=== PATIENT | male | born 1940 | race Caucasian/White ===

== ENCOUNTER 2017-05-09 08:47 | Outpatient (CLI) | payer MEDICARE, BC ==
[2017-05-09 10:24] LABS: #Eosinphils 0.1 thou/uL (0.0-0.7); #Monocytes 0.4 thou/uL (0.11-0.59); #Neutrophils 3.7 thou/uL (1.40-6.50); %Basophils 0.9 % (0.0-1.0); %Eosinophils 1.5 % (0.0-10.0); %Lymphocytes 19.4 % (21.0-51.0); %Neutrophils 70.1 % (42.0-75.0); Mean Corpuscular HGB CONC 32.1 g/dL (32.0-36.0); Mean Corpuscular Hemoglobin 32.5 pg (27.0-31.0); Mean Platelet Volume 9.9 fL (7.4-10.4); Platelet Count 146 thou/uL (130-400); RBC Distribution Width 12.6 % (11.5-14.5); Red Blood Cell (RBC) Count 3.99 mill/uL (4.70-6.10); White Blood Cell (WBC) Count 5.2 thou/uL (4.8-10.8)
[2017-05-09 10:32] LABS: Bilirubin Negative (Negative); Blood, Urine Negative (Negative); Clarity CLEAR (Clear); Glucose, Urine (Dipstick) Negative (Negative); Leukocyte Negative (Negative); Nitrite Negative (Negative); Protein, Urine (Dipstick) Negative (Neg-Trace); Specific Gravity, Urine 1.024 (1.002-1.036); Urobilinogen 0.2 mg/dL (0.2-1.0); pH, Urine 5.5 (5.0-9.0)
[2017-05-09 10:33] LABS: INR-International Normal Ratio 1.1; Prothrombin Time 14.2 SEC (12.0-14.7)
[2017-05-09 10:37] LABS: Bacteria/HPF None Seen HPF (None Seen); Hyaline Casts/LPF 0-3 HYALINE CAST LPF (0-3 Hyaline); RBC/HPF 0-3 HPF (0-3); Squamous Epithelial None Seen HPF (0-3); WBC/HPF None Seen HPF (0-3)
[2017-05-09 10:44] LABS: Anion Gap 10 mmol/L (10-20); BUN (Urea Nitrogen) 26 mg/dL (8.4-25.7); Calc. Creatinine Clearance 0 mL/min (70-130); Calcium 9.3 mg/dL (7.8-10.44); Carbon Dioxide 30 mmol/L (23-31); Chloride 106 mmol/L (98-107); Estimated GFR-MDRD 64; Glucose 69 mg/dL (83-110); Potassium 4.3 mmol/L (3.5-5.1); Sodium 142 mmol/L (136-145)
== END 2017-05-09 08:48 | disposition home or self-care (01) ==
LOC: LABBT 08:47
PROVIDERS: ATTEND Orthopaedic Surgery
DX: Z01.818 Encounter for other preprocedural examination (principal); M17.11 Unilateral primary osteoarthritis, right knee
CPT/HCPCS: 80048; 81001; 85025; 85610; 87081; 93005; 93010

== ENCOUNTER 2017-05-18 14:30 | Outpatient (CLI) | payer MEDICARE, BC | END 2017-05-18 14:31 | disposition home or self-care (01) | LOC: LABBT 14:30 | PROVIDERS: ATTEND Orthopaedic Surgery | DX: Z01.818 Encounter for other preprocedural examination (principal); M17.11 Unilateral primary osteoarthritis, right knee | CPT/HCPCS: 86850; 86900; 86901 ==

== ENCOUNTER 2017-05-22 05:33 | Day surgery (SDC) | payer MEDICARE, BC ==
[2017-05-09 09:05] VITALS: BMI 21.1
[2017-05-22] MEDS ORDERED: Midazolam HCl 2 mg/2 ml Vial ONE (06:23)
[2017-05-22] MEDS ORDERED: Lidocaine 1% (PF) 30 ML VIAL ONE ×2 (06:23→07:31)
[2017-05-22] MEDS ORDERED: Fentanyl 100 MCG/2 ML VIAL ONE ×2 (06:23→07:54)
[2017-05-22] MEDS ORDERED: Bupivacaine PF 0.5% 30 ML VIAL ONE (06:25)
[2017-05-22] MEDS ORDERED: Ropivacaine 0.2% HCl/PF 20 ML ONE (06:27)
[2017-05-22] MEDS ORDERED: Clindamycin/D5W 600 mg/50 ml Premix Bag ONE (06:28)
[2017-05-22] MEDS ORDERED: Ondansetron HCl/PF 4 MG/2 ML Vial IVP PRN ×3 (07:09→09:10)
[2017-05-22] MEDS ORDERED: Promethazine HCl 25 MG/ML VIAL IM PRN ×3 (07:09→09:10)
[2017-05-22] MEDS ORDERED: Ketorolac Tromethamine 30 MG/ML VIAL IVP PRN (07:09)
[2017-05-22] MEDS ORDERED: Zolpidem Tartrate 5 MG TAB PO PRN ×2 (07:09→09:04)
[2017-05-22] MEDS ORDERED: HYDROcodone/Acetaminophen 10/325 mg Tablet PO PRN (07:09)
[2017-05-22] MEDS ORDERED: Ropivacaine 0.2% 550 ML 550 ML NERVE BLCK SCH (07:09)
[2017-05-22] MEDS ORDERED: traMADol HCl 50 MG TAB PO PRN ×2 (07:09)
[2017-05-22] MEDS ORDERED: methylPREDNISolone Acetate 40 mg/ml Vial ONE (07:31)
[2017-05-22] MEDS ORDERED: hydrALAZINE 20 MG/ML VIAL ONE (07:58)
[2017-05-22] MEDS ORDERED: diphenhydrAMINE 25 MG CAP PO PRN (09:04)
[2017-05-22] MEDS ORDERED: Acetaminophen 325 MG TAB PO PRN (09:04)
[2017-05-22] MEDS ORDERED: Promethazine HCl 25 MG/ML VIAL SLOW IVP PRN (09:10)
[2017-05-22] MEDS ORDERED: Tranexamic Acid 1,000 MG in Sodium Chloride 0.9% 100 ML IVPB SCH (09:15)
--- NOTE | 2017-05-22 10:17 | OP ---
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 POSTOPERATIVE DIAGNOSIS: Bilateral knee osteoarthrosis with the right side being worse than the left . PROCEDURES PERFORMED: 1. Right total knee replacement using [employer] pinless navigation. 2. Left knee corticosteroid injection. SURGEON: Damon Craven M.D. CYLINDER BATCHER: Kaiden Alston PA-C ANESTHESIA: He did have general anesthetic as well as preoperative blocks. DISPOSITION: He did go to the recovery room in stable condition. COMPLICATIONS: There were no complications. IMPLANTS: To the right knee including a [employer] Triathlon total knee system, the femur was size 5 cr uciate retaining, tibial baseplate size 5 universal baseplate. We used a 5 x 9 mm CS X3 tibial beari ng and an asymmetric 29 x 9 X3 patella. INDICATIONS: A 77-year-old male with bilateral knee arthritis, and at this time, he wished to have h is right knee replaced and the left knee injected. After all appropriate consent forms were explaine d and signed, he was taken back to the operating room and at this time was given general anesthetic. Once the level of anesthesia was appropriate, the left leg had the knee washed with some alcohol ove r the area of injection and we then sterilely injected 80 mg of Depo-Medrol with local into the left knee joint. A Band-Aid was applied. PROCEDURE IN DETAIL: After all appropriate consent forms were explained and signed, the patient was taken back to the Operating Room and at this time was given general anesthetic. Once the level of an esthesia was appropriate, a well-padded tourniquet was placed on the right leg and the leg was then p repped and draped in standard surgical fashion. The limb was exsanguinated and tourniquet taken up t o 300 mmHg. Midline incision was made with a 10 blade down through the skin and subcutaneous tissue. Bovie electrocautery was used to coagulate any brisk venous bleeding. A new blade was used to make a medial parapatellar arthrotomy. Small subperiosteal release was performed medially and excess fat pad was removed. The knee was flexed up to gain access to the femur. The femur was navigated and d istal femoral resection was made. Epicondylar access was used to align our sizing jig and this was p inned in place. We sized our femur to be a size 5 cruciate retaining, 4:1 cutting block was applied and pinned. Anterior and posterior chamfer cuts were then made. We navigated out our proximal tibia and made our proximal tibial resection. Spreaders were used to remove any posterior osteophytes off the back of the femur as well as remaining meniscal tissue. A long alignment alexx was then used to a chieve correct rotation of our tibial baseplate and a size 5 universal baseplate was chosen. This wa s pinned in place. We trialed the polyethylene and a 5 x 9 mm CS X3 tibial bearing polyethylene gave us full extension and good stability throughout range of motion. Two towel clips and a saw were use d to cut our patella. Three lug nuts were drilled and an asymmetric 29 x 9 X3 patella was trialed wh ich sat nicely in the trochlear groove. We then drilled our femur and punched our tibia. All compon ents were removed. The knee was thoroughly irrigated and dried. Cement was mixed into the cement gu n on the back table. Components were then placed. The knee was held out in full extension until the cement had dried. All excess bone cement was removed. Multiple #2 Vicryl stitches as well as a Colt ll was used to close our extensor mechanism. 0 Quill followed by a running Monoderm was then used to close the skin. Surgicel glue was then used on the skin. Once this had dried, soft tissue dressing was applied to the limb, tourniquet was let down, and the toes pinked up nicely. The patient was th en awakened and taken to the Recovery Room in stable condition. All counts were correct at the end o f the case. The patient did receive preoperative IV antibiotics. The patient was injected with Expa rel for postoperative pain relief.
[2017-05-22] MEDS ORDERED: Prevnar 13-Val Conj/PF 0.5 ML SYRINGE IM ONE (11:45)
[2017-05-22] MEDS: Clindamycin/D5W 900 MG in Premix Bag 1 BAG IVPB SCH ×2 (12:39→18:10)
[2017-05-22] MEDS: Sodium Chloride 0.9% 1,000 ML IV SCH ×2 (12:39→20:15)
[2017-05-22] MEDS ORDERED: Ropivacaine 0.5% HCl/PF (150 MG/30 ML VIAL) ONE (16:10)
[2017-05-22] MEDS ORDERED: Bupivacaine/Epinephrine 0.25% 30 ML VIAL ONE (16:10)
[2017-05-22] MEDS ORDERED: ePHEDrine/0.9% NaCl/PF SYRINGE 50 mg/10 ml ONE (16:26)
[2017-05-22] MEDS ORDERED: PROPOFOL 200 MG/20 ML VIAL ONE (16:26)
[2017-05-22] MEDS ORDERED: Ondansetron HCl/PF 4 MG/2 ML Vial ONE (16:26)
[2017-05-22] MEDS ORDERED: PHENYLEPHRINE-NS 100 MCG/ML 10 ML SYRINGE ONE (16:26)
[2017-05-22] MEDS ORDERED: Dexamethasone 20 MG/5 ML VIAL ONE (16:26)
[2017-05-22] MEDS ORDERED: Vancomycin HCl 1 GM in Premix Bag 1 BAG IVPB SCH (18:00)
[2017-05-22] MEDS ORDERED: hydrALAZINE 20 MG/ML VIAL SLOW IVP PRN (18:04)
--- NOTE | 2017-05-22 21:10 | CON ---
DATE OF CONSULTATION: 05/22/2017 PRIMARY CARE PROVIDER: None. CHIEF COMPLAINT: Management of medical comorbidities. HISTORY OF PRESENT ILLNESS: Mr. Verdin is a pleasant 77-year-old gentleman who was seen at [facility] on 05/22/2017 following right total knee replacement. He was seen for gustavo suarez of medical comorbidities. He denies any chest pain or shortness of breath. He denies any fevers or chills. He denies any naus ea, vomiting, diarrhea or abdominal pain. He reports that the pain at the surgical site is controlle d with pain medications. REVIEW OF SYSTEMS: The following complete review of systems was negative, unless otherwise mentioned in the HPI or below: Constitutional: Weight loss or gain, ability to conduct usual activities. Sk in: Rash, itching. Eyes: Double vision, pain. ENT/Mouth: Nose bleeding, neck stiffness, pain, tenderness. Cardiovascular: Palpitations, dyspnea on exertion, orthopnea. Respiratory: Shortness of breath, wheezing, cough, hemoptysis, fever or nig ht sweats. Gastrointestinal: Poor appetite, abdominal pain, heartburn, nausea, vomiting, constipati on, or diarrhea. Genitourinary: Urgency, frequency, dysuria, nocturia. Musculoskeletal: Pain, swe lling. Neurologic/Psychiatric: Anxiety, depression. Allergy/Immunologic: Skin rash, bleeding tend ency. PAST MEDICAL HISTORY: Significant for coronary artery disease, gastroesophageal reflux disease, dysl ipidemia, eye trauma. PAST SURGICAL HISTORY: Right total knee arthroplasty today, PCI with stents in the past. SOCIAL HISTORY: The patient denies tobacco use or recreational drug use. Rare alcohol use. FAMILY HISTORY: No family history of premature coronary artery disease. CODE STATUS: I discussed his code status. He is FULL CODE. ALLERGIES: CLONIDINE, PENICILLIN, and TOPIRAMATE. HOME MEDICATIONS: Vitamin C 500 mg daily, aspirin 162 mg daily, buprenorphine 2 mg sublingually 2 ti mes a day, calcium carbonate 500 mg daily, fexofenadine 180 mg daily, fish oil 500 mg daily, glucosam ine 1500 mg daily, probiotic 1 capsule daily, magnesium 250 mg daily, Protonix 40 mg daily, polyethyl sherwin glycol 17 grams daily, pravastatin 40 mg at bedtime, prednisone 4 mg daily, Lyrica 150 mg daily, timolol eyedrops. PHYSICAL EXAMINATION: GENERAL: On examination, Mr. Verdin is awake and alert, not in acute distress. VITAL SIGNS: Blood pressure is 145/86, pulse is 67, he is breathing at rate of 18, and saturating 95 % on room air. He is afebrile. EYES: No scleral icterus. No conjunctival pallor. ENT: Moist mucosal membranes, no oropharyngeal erythema or exudates. NECK: Supple, nontender, normal range of movement. Trachea is midline. RESPIRATORY: Accessory muscles of breathing are not active. Chest wall movements are symmetric bila terally. Lungs are clear to auscultation without wheeze, rhonchi or crepitations. CARDIOVASCULAR: S1 and S2 are heard, regular. Peripheral pulses palpable. No carotid bruit, no per icardial rub. ABDOMEN: Soft, nontender, bowel sounds heard, no hepatomegaly, no splenomegaly. NEUROLOGIC: Cranial nerves II-XII intact. MUSCULOSKELETAL: Status post right knee surgery. SKIN: No rashes or subcutaneous nodules. LYMPHATIC: No cervical lymphadenopathy. PSYCHIATRIC: Normal mood, normal affect. The patient is oriented to person, place, and time. LABORATORY DATA: Mr. Verdin's labs and investigations were reviewed. On 05/09/2017, he had white c ount of 5200, hemoglobin 13, platelet count 146,000, normal electrolytes, elevated blood urea nitroge n of 26 and normal creatinine. ASSESSMENT AND PLAN: Mr. Verdin is a pleasant 77-year-old gentleman who was seen at [facility] for management of medical comorbidities. His problem list includes: 1. Coronary artery disease. The patient denies any chest pain. Coronary artery disease appears to be stable. 2. Dyslipidemia: Continue statin. 3. Gastroesophageal reflux disease. Continue proton-pump inhibitor. 4. Add p.r.n. IV hydralazine for blood pressure spikes. LEVEL OF RISK: Moderate. LEVEL OF COMPLEXITY: Moderate.
[2017-05-22] MEDS: Senokot S 8.6-50 MG TAB PO SCH (21:26)
[2017-05-22] MEDS: Atorvastatin Calcium 10 MG TAB PO SCH (21:27)
[2017-05-22] MEDS: Ferrous Gluconate 324 MG TAB PO SCH (21:27)
[2017-05-22] MEDS: Aspirin 81 mg Enteric Coated Tablet PO SCH (21:27)
[2017-05-22] MEDS: HYDROcodone/Acetaminophen 10/325 mg Tablet PO PRN (21:30)
[2017-05-23] MEDS: HYDROcodone/Acetaminophen 10/325 mg Tablet PO PRN ×3 (02:35→23:20)
[2017-05-23 04:02] LABS: Hemoglobin 11.9 g/dL (14.0-18.0); Mean Corpuscular HGB CONC 33.5 g/dL (32.0-36.0); Mean Corpuscular Hemoglobin 32.9 pg (27.0-31.0); Mean Corpuscular Volume 98.4 fl (80.0-94.0); Mean Platelet Volume 9.5 fL (7.4-10.4); Platelet Count 124 thou/uL (130-400); RBC Distribution Width 12.9 % (11.5-14.5); Red Blood Cell (RBC) Count 3.62 mill/uL (4.70-6.10); White Blood Cell (WBC) Count 15.5 thou/uL (4.8-10.8)
[2017-05-23] MEDS: Sodium Chloride 0.9% 1,000 ML IV SCH ×2 (04:37→16:00)
[2017-05-23] MEDS: Polyethylene Glycol 3350 17 GM Packet PO SCH (07:57)
[2017-05-23] MEDS: Calcium Carbonate 500 MG TAB PO SCH (07:58)
[2017-05-23] MEDS: Senokot S 8.6-50 MG TAB PO SCH ×2 (07:58→20:49)
[2017-05-23] MEDS: Multivitamin W/ Minerals 1 TAB PO SCH (07:59)
[2017-05-23] MEDS: Ferrous Gluconate 324 MG TAB PO SCH ×2 (07:59→20:49)
[2017-05-23] MEDS: CeleCOXIB 100 MG CAP PO SCH (07:59)
[2017-05-23] MEDS: Loratadine 10 MG TAB PO SCH (07:59)
[2017-05-23] MEDS: Fish Oil 1,000 MG CAP PO SCH (08:00)
[2017-05-23] MEDS: Ascorbic Acid 500 mg Chewable Tablet PO SCH (08:00)
[2017-05-23] MEDS: Aspirin 81 mg Enteric Coated Tablet PO SCH ×2 (08:00→20:49)
[2017-05-23] MEDS: Pregabalin 75 MG CAP PO SCH (08:09)
[2017-05-23] MEDS ORDERED: Aspirin 81 mg Enteric Coated Tablet PO SCH (09:00)
[2017-05-23] MEDS: predniSONE 1 MG TAB PO SCH (11:27)
[2017-05-23] MEDS: Timolol 0.5% Ophth Soln 5 ml Bottle L EYE SCH (11:28)
--- NOTE | 2017-05-23 15:25 | PDOC.PN ---
- Subjective Encounter Start Date: 05/23/17 Encounter Start Time: 10:20 Pt seen for followup re: CAD. denies chest pain, shortness of breath, fevers or chills. - Objective MAR Reviewed: Yes Vital Signs & Weight: Vital Signs (12 hours) Temp Pulse Resp BP Pulse Ox 05/23/17 11:25 97.9 F 61 16 104/58 L 95 05/23/17 08:00 98.4 F 66 16 05/23/17 07:33 98.4 F 66 16 118/63 95 05/23/17 04:00 98.2 F 65 16 113/62 93 L Weight Admit Weight 156 lb Weight 156 lb I&O: 05/22/17 05/23/17 05/24/17 06:59 06:59 06:59 Intake Total 2400 Output Total 2500 Balance -100 Result Diagrams: 05/23/17 03:30 Phys Exam - Physical Examination Constitutional: NAD HEENT: moist MMs Neck: supple Respiratory: clear to auscultation bilateral Cardiovascular: RRR Gastrointestinal: soft s/p R knee surgery Neurological: moves all 4 limbs Psychiatric: normal affect Dx/Plan (1) CAD (coronary artery disease) Code(s): I25.10 - ATHSCL HEART DISEASE OF [place] CORONARY ARTERY W/O ANG PCTRS Status: Chronic Comment: stable (2) GERD (gastroesophageal reflux disease) Code(s): K21.9 - GASTRO-ESOPHAGEAL REFLUX DISEASE WITHOUT ESOPHAGITIS Status: Chronic Comment: continue PPI (3) Dyslipidemia Code(s): E78.5 - HYPERLIPIDEMIA, UNSPECIFIED Status: Chronic Comment: continue statin - Plan * . Review of Systems - Review of Systems Respiratory: negative: Cough, Dry, Shortness of Breath, Hemoptysis, SOB with Excertion, Pleuritic Pain, Sputum, Wheezing Cardiovascular: negative: chest pain, palpitations, orthopnea, paroxysmal nocturnal dyspnea, edema, light headedness - Medications/Allergies Allergies/Adverse Reactions: Allergies Allergy/AdvReac Type Severity Reaction Status Date / Time clonidine Allergy Verified 05/09/17 09:06 Penicillins Allergy Verified 05/09/17 09:06 topiramate [From Topamax] Allergy Verified 05/09/17 09:06 Medications: Current Medications Acetaminophen (Tylenol) 650 mg PO Q4H PRN PRN Reason: ROBERSON/ T > 101F; Mild Pain (1-3) Last Admin: 05/22/17 16:09 Dose: 650 mg Hydrocodone Bitart/Acetaminophen ([place] 10/325) 1 tab PO Q4H PRN PRN Reason: Pain (1-3) Hydrocodone Bitart/Acetaminophen ([place] 10/325) 2 tab PO Q4H PRN PRN Reason: PAIN (4-6) Last Admin: 05/23/17 08:10 Dose: 2 tab Ascorbic Acid (Vitamin C) 500 mg PO DAILY [facility] Last Admin: 05/23/17 08:00 Dose: 500 mg Aspirin (Ecotrin) 81 mg PO BID [facility] Last Admin: 05/23/17 08:00 Dose: 81 mg Atorvastatin Calcium (Lipitor) 10 mg PO HS [facility] Last Admin: 05/22/17 21:27 Dose: 10 mg Calcium Carbonate (Oscal-500) 500 mg PO DAILY [facility] Last Admin: 05/23/17 07:58 Dose: 500 mg Celecoxib (Celebrex) 400 mg PO DAILY [facility] Last Admin: 05/23/17 07:59 Dose: 400 mg Diphenhydramine HCl (Benadryl) 25 mg PO Q6H PRN PRN Reason: Itching Ferrous Gluconate (Fergon) 324 mg PO BID [facility] Last Admin: 05/23/17 07:59 Dose: 324 mg Fish Oil (Fish Oil) 500 mg PO DAILY [facility] Last Admin: 05/23/17 08:00 Dose: 500 mg Hydralazine HCl (Apresoline) 10 mg SLOW IVP Q6H PRN PRN Reason: SBP Greater Than 170 Ropivacaine (Ropivacaine 0.2% 550 Ml) 550 mls @ 0 mls/hr NERVE BLCK INF [facility] PRN Reason: As Directed Sodium Chloride (Normal Saline 0.9%) 1,000 mls @ 100 mls/hr IV .Q10H [facility] Last Admin: 05/23/17 04:37 Dose: Not Given Iron/Minerals/Multivitamins (Theragran M) 1 tab PO DAILY [facility] Last Admin: 05/23/17 07:59 Dose: 1 tab Ketorolac Tromethamine (Toradol) 15 mg IVP Q6H PRN PRN Reason: Moderate Pain (4-6) Stop: 05/25/17 07:10 Loratadine (Claritin) 10 mg PO DAILY [facility] Last Admin: 05/23/17 07:59 Dose: 10 mg Ondansetron HCl (Zofran) 4 mg IVP Q6H PRN PRN Reason: Nausea/Vomiting Pantoprazole Sodium (Protonix) 40 mg PO DAILY [facility] Last Admin: 05/23/17 08:00 Dose: 40 mg Polyethylene Glycol (Miralax) 17 gm PO DAILY [facility] Last Admin: 05/23/17 07:57 Dose: 17 gm Prednisone (Prednisone) 4 mg PO DAILY [facility] Last Admin: 05/23/17 11:27 Dose: 4 mg Pregabalin (Lyrica) 150 mg PO DAILY [facility] Last Admin: 05/23/17 08:09 Dose: 150 mg Promethazine HCl (Phenergan) 12.5 mg IM Q4H PRN PRN Reason: Nausea/Vomiting Senna/Docusate Sodium (Senokot S) 2 tab PO BID [facility] Last Admin: 05/23/17 07:58 Dose: 2 tab Sodium Chloride (Flush - Normal Saline) 10 ml IVF PRN PRN PRN Reason: Saline Flush Timolol Maleate (Timoptic 0.5% Oph Soln) 1 drop L EYE DAILY [facility] Last Admin: 05/23/17 11:28 Dose: 1 drop Tramadol HCl (Ultram) 100 mg PO Q6H PRN PRN Reason: Mild Pain (1-3) Zolpidem Tartrate (Ambien) 5 mg PO HSPRN PRN PRN Reason: Insomnia
[2017-05-23] MEDS: traMADol HCl 50 MG TAB PO PRN (15:59)
[2017-05-23] MEDS: Atorvastatin Calcium 10 MG TAB PO SCH (20:49)
[2017-05-24] MEDS: Sodium Chloride 0.9% 1,000 ML IV SCH (01:47)
[2017-05-24 05:46] LABS: Hemoglobin 11.2 g/dL (14.0-18.0); Mean Corpuscular Hemoglobin 34.6 pg (27.0-31.0); Mean Platelet Volume 10.1 fL (7.4-10.4); Platelet Count 115 thou/uL (130-400); RBC Distribution Width 12.9 % (11.5-14.5); Red Blood Cell (RBC) Count 3.25 mill/uL (4.70-6.10); White Blood Cell (WBC) Count 13.8 thou/uL (4.8-10.8)
[2017-05-24] MEDS: HYDROcodone/Acetaminophen 10/325 mg Tablet PO PRN (05:54)
[2017-05-24] MEDS: CeleCOXIB 100 MG CAP PO SCH (08:45)
[2017-05-24] MEDS: Polyethylene Glycol 3350 17 GM Packet PO SCH (08:45)
[2017-05-24] MEDS: Ascorbic Acid 500 mg Chewable Tablet PO SCH (08:48)
[2017-05-24] MEDS: Multivitamin W/ Minerals 1 TAB PO SCH (08:48)
[2017-05-24] MEDS: Ferrous Gluconate 324 MG TAB PO SCH (08:48)
[2017-05-24] MEDS: Aspirin 81 mg Enteric Coated Tablet PO SCH (08:48)
[2017-05-24] MEDS: Fish Oil 1,000 MG CAP PO SCH (08:48)
[2017-05-24] MEDS: Calcium Carbonate 500 MG TAB PO SCH (08:48)
[2017-05-24] MEDS: Loratadine 10 MG TAB PO SCH (08:48)
[2017-05-24] MEDS: Timolol 0.5% Ophth Soln 5 ml Bottle L EYE SCH (08:50)
[2017-05-24] MEDS: Senokot S 8.6-50 MG TAB PO SCH (08:50)
[2017-05-24] MEDS: Pregabalin 75 MG CAP PO SCH (08:56)
[2017-05-24] MEDS: traMADol HCl 50 MG TAB PO PRN (08:56)
[2017-05-24] MEDS: predniSONE 1 MG TAB PO SCH (11:08)
[2017-05-24 12:15] VITALS: BP 131/70; TEMP 97.8
--- NOTE | 2017-05-24 15:41 | PDOC.PN ---
- Subjective Encounter Start Date: 05/24/17 Encounter Start Time: 10:00 Pt seen for followup re: CAD. No chest pain or shortness of breath. No fevers overnight. Feels better. - Objective MAR Reviewed: Yes Vital Signs & Weight: Vital Signs (12 hours) Temp Pulse Pulse Resp BP BP BP 05/24/17 12:14 97.8 F 60 18 131/70 05/24/17 09:02 62 91/48 L 05/24/17 08:09 98.3 F 62 16 138/78 05/24/17 08:00 98.3 F 62 16 05/24/17 04:00 97.8 F 64 18 156/78 H Pulse Ox 05/24/17 12:14 95 05/24/17 09:02 05/24/17 08:09 96 05/24/17 08:00 05/24/17 04:00 95 Weight Admit Weight 156 lb Weight 156 lb I&O: 05/23/17 05/24/17 05/25/17 06:59 06:59 06:59 Intake Total 2400 2100 Output Total 2500 1900 Balance -100 200 Result Diagrams: 05/24/17 05:25 Phys Exam - Physical Examination Constitutional: NAD HEENT: moist MMs Neck: supple Respiratory: clear to auscultation bilateral Cardiovascular: RRR Gastrointestinal: soft R knee surgery Neurological: moves all 4 limbs Psychiatric: normal affect Dx/Plan (1) CAD (coronary artery disease) Code(s): I25.10 - ATHSCL HEART DISEASE OF [place] CORONARY ARTERY W/O ANG PCTRS Status: Chronic Comment: stable, no chest pain (2) GERD (gastroesophageal reflux disease) Code(s): K21.9 - GASTRO-ESOPHAGEAL REFLUX DISEASE WITHOUT ESOPHAGITIS Status: Chronic Comment: stable, continue PPI (3) Dyslipidemia Code(s): E78.5 - HYPERLIPIDEMIA, UNSPECIFIED Status: Chronic Comment: stable , continue statin - Plan * . Plan for discharge noted, will sign off Review of Systems - Review of Systems Constitutional: negative: fever, chills, sweats, weakness, malaise Respiratory: negative: Cough, Shortness of Breath, SOB with Excertion, Pleuritic Pain Cardiovascular: negative: chest pain, palpitations, orthopnea, paroxysmal nocturnal dyspnea, edema, light headedness - Medications/Allergies Allergies/Adverse Reactions: Allergies Allergy/AdvReac Type Severity Reaction Status Date / Time clonidine Allergy Verified 05/09/17 09:06 Penicillins Allergy Verified 05/09/17 09:06 topiramate [From Topamax] Allergy Verified 05/09/17 09:06
--- NOTE | 2017-05-25 13:10 | DIS ---
DATE OF ADMISSION: 05/22/2017 DATE OF DISCHARGE: 05/24/2017 DISCHARGE DISPOSITON: To home. ADMISSION DIAGNOSIS: End-stage tricompartmental osteoarthritis, right knee. DISCHARGE DIAGNOSIS: End-stage tricompartmental osteoarthritis, right knee. OPERATIVE PROCEDURE: Right total knee arthroplasty. CONSULTANTS: [facility] for acute postop pain management and [facility] fo r medical management. BRIEF CLINICAL HISTORY: The patient was admitted to [facility] and underwent the above elective procedure on the date of admission without intra, destinee, or postoperative complicat ion. The hospital course was unremarkable. At the time of discharge, the patient is afebrile, ambul atory without assistance utilizing a rolling walker in a full weightbearing fashion, tolerating a reg ular diet, and voiding without difficulty. The patient's incision is clean and closed without any er ythema. DISCHARGE MEDICATIONS: Please see medication reconciliation form. We will be happy to see the patient on an as needed basis between now and her next scheduled appointm ent. CONDITION ON DISCHARGE: Stable. PROGNOSIS: Good.
== END 2017-05-24 12:56 | disposition home or self-care (01) ==
LOC: SDC 05:33 → SJJU 10:09 → SDC 05-24 12:56
PROVIDERS: ATTEND Orthopaedic Surgery
PROC: 0SRC0JZ Replacement of Right Knee Joint with Synthetic Substitute, Open Approach (ICD-10-PCS; principal; 2017-05-22)
PROC: 3E0U33Z Introduction of Anti-inflammatory into Joints, Percutaneous Approach (ICD-10-PCS; 2017-05-22)
DX: Z98.890 Other specified postprocedural states; M17.0 Bilateral primary osteoarthritis of knee; Z88.8 Allergy status to other drugs, medicaments and biological substances; Z88.0 Allergy status to penicillin
CPT/HCPCS: 20610; 27447; 85027; 97110; 97116 ×3; 97139 ×2; 97150; 97530 ×2; A4306; C1713; C1776; G8978; G8979; 36415; J0131; J0360; J1030; J1100; J2001; J2250; J2405; J2704; J2795; J3010; J3370; J3490; S0020

== ENCOUNTER 2019-01-21 06:54 | Day surgery (SDC) | payer MEDICARE, BC ==
[2019-01-16 14:07] LABS: Bacteria/HPF None Seen HPF (None Seen); Bilirubin Negative (Negative); Blood, Urine Negative (Negative); Clarity Clear (Clear); Glucose, Urine (Dipstick) Normal (Negative); Leukocyte Negative Leu/uL (Negative); Nitrite Negative (Negative); Protein, Urine (Dipstick) Negative (Neg-Trace); RBC/HPF 0-3 HPF (0-3); Squamous Epithelial None Seen HPF (0-3); Urobilinogen Normal mg/dL (Less than 2); WBC/HPF None Seen HPF (0-3)
[2019-01-16 14:09] LABS: #Eosinphils 0.1 thou/uL (0.0-0.7); #Lymphocytes 1.4 thou/uL (1.20-3.40); #Monocytes 0.9 thou/uL (0.11-0.59); #Neutrophils 6.4 thou/uL (1.40-6.50); %Basophils 0.1 % (0.0-1.0); %Eosinophils 0.6 % (0.0-10.0); %Lymphocytes 16.1 % (21.0-51.0); %Monocytes 10.2 % (0.0-10.0); Hemoglobin 12.4 g/dL (14.0-18.0); Mean Corpuscular HGB CONC 31.8 g/dL (32.0-36.0); Mean Corpuscular Hemoglobin 32.5 pg (27.0-31.0); Mean Platelet Volume 9.3 fL (7.4-10.4); Platelet Count 228 thou/uL (130-400); RBC Distribution Width 13.1 % (11.5-14.5); Red Blood Cell (RBC) Count 3.81 mill/uL (4.70-6.10); White Blood Cell (WBC) Count 8.7 thou/uL (4.8-10.8)
[2019-01-16 14:11] LABS: INR-International Normal Ratio 1.1; PTT 31.4 SEC (22.9-36.1); Prothrombin Time 13.8 SEC (12.0-14.7)
[2019-01-16 16:41] LABS: Anion Gap 10 mmol/L (10-20); BUN (Urea Nitrogen) 13 mg/dL (8.4-25.7); Calc. Creatinine Clearance 0 mL/min (70-130); Calcium 9.2 mg/dL (7.8-10.44); Carbon Dioxide 31 mmol/L (23-31); Chloride 104 mmol/L (98-107); Estimated GFR-MDRD 76; Glucose 96 mg/dL (83-110); Potassium 4.1 mmol/L (3.5-5.1); Sodium 141 mmol/L (136-145)
[2019-01-18 12:24] VITALS: BMI 21.2
[2019-01-21] MEDS ORDERED: Sodium Chloride 0.9% 100 ML ONE (07:24)
[2019-01-21] MEDS ORDERED: Tranexamic Acid 1,000 MG/10 ML VIAL ONE ×2 (07:24→11:25)
[2019-01-21] MEDS ORDERED: Midazolam HCl 2 mg/2 ml Vial ONE (08:16)
[2019-01-21] MEDS ORDERED: Fentanyl 100 MCG/2 ML VIAL ONE ×2 (08:16→09:14)
[2019-01-21] MEDS ORDERED: Clindamycin/D5W 600 mg/50 ml Premix Bag ONE (09:36)
[2019-01-21] MEDS ORDERED: HYDROcodone/Acetaminophen 10/325 mg Tablet PO PRN ×2 (09:58)
[2019-01-21] MEDS ORDERED: Zolpidem Tartrate 5 MG TAB PO PRN ×2 (09:58→10:45)
[2019-01-21] MEDS ORDERED: Promethazine HCl 25 MG/ML VIAL IM PRN ×3 (09:58→10:45)
[2019-01-21] MEDS ORDERED: traMADol HCl 50 MG TAB PO PRN ×2 (09:58→10:45)
[2019-01-21] MEDS ORDERED: Fentanyl 100 MCG/2 ML VIAL SLOW IVP PRN (09:58)
[2019-01-21] MEDS ORDERED: diphenhydrAMINE 25 MG CAP PO PRN (09:58)
[2019-01-21] MEDS ORDERED: Ondansetron PF 4 MG/2 ML Vial IVP PRN ×2 (09:58→10:45)
[2019-01-21] MEDS ORDERED: Tranexamic Acid 1,000 MG in Sodium Chloride 0.9% 100 ML IVPB SCH (10:00)
[2019-01-21] MEDS ORDERED: Hydrocortisone Sod Succ/PF 100 mg/2 ml Vial ONE (10:02)
[2019-01-21] MEDS ORDERED: Promethazine HCl 25 MG/ML VIAL SLOW IVP PRN (10:08)
[2019-01-21] MEDS ORDERED: Ondansetron HCl/PF 4 MG/2 ML Vial IVP PRN (10:08)
[2019-01-21] MEDS ORDERED: Ropivacaine 0.2% HCl/PF (40 MG/20 ML VIAL) ONE (10:14)
[2019-01-21] MEDS ORDERED: Ropivacaine 0.5% HCl/PF (150 MG/30 ML VIAL) ONE (10:14)
[2019-01-21] MEDS ORDERED: Ondansetron PF 4 MG/2 ML Vial ONE (10:14)
[2019-01-21] MEDS ORDERED: PROPOFOL 200 MG/20 ML VIAL ONE (10:14)
[2019-01-21] MEDS ORDERED: ePHEDrine/0.9% NaCl/PF SYRINGE 50 mg/10 ml ONE (10:14)
[2019-01-21] MEDS ORDERED: Bupivacaine PF 0.5% 30 ML VIAL ONE (10:29)
[2019-01-21] MEDS ORDERED: Ropivacaine HCl/PF 250 ML in Premix Bag 1 BAG NERVE BLCK SCH (10:45)
[2019-01-21] MEDS ORDERED: Fentanyl 100 MCG/2 ML VIAL IV PRN (10:46)
[2019-01-21] MEDS ORDERED: Ketorolac Tromethamine 30 MG/ML VIAL IVP SCH (14:00)
--- NOTE | 2019-01-21 14:49 | OP ---
DATE OF PROCEDURE: 01/21/2019 BIT SHARPENER: Espinoza Alston PA-C PREOPERATIVE DIAGNOSIS: Left knee osteoarthrosis. POSTOPERATIVE DIAGNOSIS: Left knee osteoarthrosis. PROCEDURES PERFORMED: Left total knee replacement using [employer] pinless navigation. ESTIMATED BLOOD LOSS: Minimal. COMPLICATIONS: None. ANESTHESIA: The patient had a general anesthetic as well as a preoperative block. IMPLANTS: To the left knee include a [employer] Triathlon total knee system, we did a size 5 cruciate-retaining femur. We used a size 5 tibial baseplate. We used a 5 x 13 mm CS X3 tibial bearing and an asymmetric 29 x 9 X3 patella. DISPOSITION: He did go to recovery room in stable condition. INDICATIONS: This is a 78-year-old male, who is presenting for left knee replacement. He has failed all nonoperative treatment and wished to have this knee replaced. PROCEDURE IN DETAIL: After all appropriate consent forms were explained and signed, the patient was taken back to the operating room and at this time was given general anesthetic. Once the level of anesthesia was appropriate, a well-padded tourniquet was placed on the left leg, and the leg was then prepped and draped in standard surgical fashion. The limb was exsanguinated and tourniquet taken up to 300 mmHg. Midline incision was made with a 10 blade down through the skin and subcutaneous tissue. Bovie electrocautery was used to coagulate any brisk venous bleeding. A new blade was used to make a medial parapatellar arthrotomy. Small subperiosteal release was performed medially and excess fat pad was removed. The knee was flexed up to gain access to the femur. The femur was navigated and distal femoral resection was made. Epicondylar access was used to align our sizing jig and this was pinned in place. We sized our femur to be a size 5 cruciate-retaining femur. 4:1 cutting block was applied and pinned. Anterior and posterior chamfer cuts were then made. We navigated out our proximal tibia and made our proximal tibial resection. Spreaders were used to remove any posterior osteophytes off the back of the femur as well as remaining meniscal tissue. A long alignment alexx was then used to achieve correct rotation of our tibial baseplate and we used a size 5 tibial baseplate was chosen. This was pinned in place. We trialed the polyethylene and we used a 5 x 13 mm CS X3 tibial bearing polyethylene gave us full extension and good stability throughout range of motion. Two towel clips and a saw were used to cut our patella. Three lug nuts were drilled and an asymmetric 29 x 9 X3 patella was trialed which sat nicely in the trochlear groove. We then drilled our femur and punched our tibia. All components were removed. The knee was thoroughly irrigated and dried. Cement was mixed into the cement gun on the back table. Components were then placed. The knee was held out in full extension until the cement had dried. All excess bone cement was removed. Multiple #2 Vicryl stitches as well as a Quill were used to close our extensor mechanism. 0 Quill followed by a running Monoderm was then used to close the skin. Surgicel glue was then used on the skin. Once this had dried, soft tissue dressing was applied to the limb, tourniquet was let down, and the toes pinked up nicely. The patient was then awakened and taken to the recovery room in stable condition. All counts were correct at the end of the case. The patient did receive preoperative IV antibiotics. The patient was injected with Marcaine for postoperative pain relief. Job ID: [id number] [facility]
--- NOTE | 2019-01-21 15:46 | CON ---
DATE OF CONSULTATION: PRIMARY CARE PROVIDER: Dr. Rony Langford. CHIEF COMPLAINT: Management of medical comorbidities. HISTORY OF PRESENT ILLNESS: Mr. Verdin is a pleasant 78-year-old gentleman, who was seen at [facility] on January 21, 2019 for management of medical comorbidities. Earlier today, he had left total knee replacement. He denies any fevers or chills. He denies any shortness of breath or chest pain. He denies any nausea or vomiting. He reports that the left knee is numb. REVIEW OF SYSTEMS: All systems were reviewed and found to be negative except for the pertinent positives mentioned above. PAST MEDICAL HISTORY: Coronary artery disease, dyslipidemia, gastroesophageal reflux disease, and eye trauma. PAST SURGICAL HISTORY: Coronary PCI with stents, right total knee arthroplasty last year, and left knee surgery today. SOCIAL HISTORY: Rare alcohol use, no tobacco use or recreational drug use. FAMILY HISTORY: No family history of premature coronary artery disease. ALLERGIES: TOPIRAMATE, PENICILLIN, CLONIDINE. HOME MEDICATIONS: 1. Buprenorphine 2 mg sublingually two times a day. 2. Calcium carbonate 600 mg daily. 3. Bentyl 10 mg 2 times a day. 4. Krill oil one capsule daily. 5. Probiotic one capsule daily. 6. Magnesium 250 mg daily. 7. Multivitamins one capsule daily. 8. Fontana-3 1000 mg soft gel daily. 9. Protonix 40 mg daily. 10. Paxil 20 mg daily. 11. MiraLAX 17 g daily. 12. Prednisone 4 mg daily. 13. Zocor 20 mg at bedtime. 14. Timolol eyedrops one drop to left eye daily. 15. Coenzyme Q10 100 mg daily. 16. Aspirin 81 mg 2 times a day. PHYSICAL EXAMINATION: GENERAL: On examination, Mr. Verdin is awake and alert, not in acute distress. VITAL SIGNS: Blood pressure is 129/65, pulse 68, respiratory rate 18, and oxygen saturation 95% on room air. He is afebrile. BMI is 21.3. EYES: No scleral icterus, no conjunctival pallor. ENT: Moist mucosal membranes. No oropharyngeal erythema or exudates. NECK: Supple, nontender, trachea is midline. RESPIRATORY: Accessory muscles of breathing are not active. Chest wall movements are symmetric bilaterally. LUNGS: Clear to auscultation without wheeze, rhonchi, or crepitations. CARDIOVASCULAR: S1 and S2 are heard, regular. Peripheral pulses palpable. ABDOMEN: Soft, nontender, bowel sounds are heard. NEUROLOGIC: Cranial nerves 2 through 12 are intact. MUSCULOSKELETAL: Status post left knee surgery. SKIN: No rashes. LYMPHATIC: No cervical lymphadenopathy. PSYCHIATRIC: Normal mood, normal affect. The patient is oriented to person, place, and time. LABORATORY DATA: Mr. Verdin labs and investigations were reviewed. He has normal white count, macrocytic anemia with hemoglobin of 12.4, normal platelet count, INR 1.1, normal chem 7 and negative urinalysis. Please note that all the above-mentioned tests were done on January 16, 2019. ASSESSMENT AND PLAN: Mr. Verdin is a pleasant 78-year-old gentleman, who was seen at [facility] on January 21, 2019 for management of medical comorbidities following left knee surgery. His problem list includes: 1. Gastroesophageal reflux disease: This appears to be stable, continue proton pump inhibitor. 2. Coronary artery disease: Stable, the patient denies any chest pain. 3. Dyslipidemia: Continue statin. Many thanks for allowing me to participate in your patient's care. Please feel free to contact me with any questions or concerns. LEVEL OF RISK: Low. LEVEL OF COMPLEXITY: Low. Job ID: [id number]
[2019-01-21] MEDS: Sodium Chloride 0.9% 1,000 ML IV SCH ×2 (16:00→16:13)
[2019-01-21] MEDS: Acetaminophen 500 MG TAB PO SCH ×2 (16:02→18:24)
[2019-01-21] MEDS: Ketorolac Tromethamine 30 MG/ML VIAL IVP SCH ×2 (16:03→18:24)
[2019-01-21] MEDS: Clindamycin/D5W 900 MG in Premix Bag 1 BAG IVPB SCH ×2 (16:10→21:42)
[2019-01-21] MEDS ORDERED: Vancomycin HCl 1 GM in Premix Bag 1 BAG IVPB SCH (18:00)
[2019-01-21] MEDS ORDERED: Aspirin 81 mg Enteric Coated Tablet PO SCH (21:00)
[2019-01-21] MEDS: Aspirin 81 mg Enteric Coated Tablet PO SCH (21:40)
[2019-01-21] MEDS: Atorvastatin Calcium 10 MG TAB PO SCH (21:40)
[2019-01-21] MEDS: Dicyclomine 10 MG CAP PO SCH (21:40)
[2019-01-22] MEDS: Acetaminophen 500 MG TAB PO SCH ×4 (00:59→17:52)
[2019-01-22] MEDS: Ketorolac Tromethamine 30 MG/ML VIAL IVP SCH ×4 (01:00→17:52)
[2019-01-22 05:47] LABS: Hemoglobin 10.3 g/dL (14.0-18.0); Mean Corpuscular HGB CONC 32.8 g/dL (32.0-36.0); Mean Corpuscular Hemoglobin 32.7 pg (27.0-31.0); Mean Corpuscular Volume 99.6 fL (78.0-98.0); Mean Platelet Volume 8.2 fL (7.4-10.4); Platelet Count 250 thou/uL (130-400); RBC Distribution Width 12.9 % (11.5-14.5); Red Blood Cell (RBC) Count 3.17 mill/uL (4.70-6.10); White Blood Cell (WBC) Count 13.4 thou/uL (4.8-10.8)
[2019-01-22] MEDS: Sodium Chloride 0.9% 1,000 ML IV SCH ×2 (05:55→15:16)
[2019-01-22] MEDS: Aspirin 81 mg Enteric Coated Tablet PO SCH ×2 (09:18→21:15)
[2019-01-22] MEDS: Ubidecarenone 50 MG CAP PO SCH (09:19)
[2019-01-22] MEDS: Calcium Carbonate 600 MG TAB PO SCH (09:19)
[2019-01-22] MEDS: Polyethylene Glycol 3350 17 GM Packet PO SCH (09:19)
[2019-01-22] MEDS: Magnesium Oxide 250 MG TAB PO SCH (09:19)
[2019-01-22] MEDS: Multivitamin W/ Minerals 1 TAB PO SCH (09:19)
[2019-01-22] MEDS: Lactinex Tablet PO SCH (09:19)
[2019-01-22] MEDS: Ferrous Gluconate 324 MG TAB PO SCH ×2 (09:19→21:15)
[2019-01-22] MEDS: PARoxetine 20 MG TAB PO SCH (09:19)
[2019-01-22] MEDS: Timolol 0.5% Ophth Soln 5 ml Bottle L EYE SCH (09:19)
[2019-01-22] MEDS: Senokot S 8.6-50 MG TAB PO SCH ×2 (09:19→21:15)
[2019-01-22] MEDS: Fish Oil 1,000 MG CAP PO SCH (09:19)
[2019-01-22] MEDS: predniSONE 1 MG TAB PO SCH (09:21)
[2019-01-22] MEDS: Dicyclomine 10 MG CAP PO SCH ×2 (09:22→21:15)
[2019-01-22] MEDS: traMADol HCl 50 MG TAB PO PRN (13:17)
--- NOTE | 2019-01-22 13:22 | PDOC.HOSPP ---
- Subjective Encounter Date: 01/22/19 Encounter Time: 07:40 Subjective: Pt seen for followup re: CAD. No chest pain, shortness of breath, fevers or chills. No fevers. - Objective Vital Signs & Weight: Vital Signs (12 hours) Temp Pulse Resp BP Pulse Ox 01/22/19 09:19 62 01/22/19 08:41 97.7 F 62 18 137/69 95 01/22/19 08:00 95 01/22/19 03:40 97.9 F 60 16 160/68 H 95 Weight Weight 157 lb I&O: 01/21/19 01/22/19 01/23/19 06:59 06:59 06:59 Intake Total 3570 Output Total 700 Balance 2870 Result Diagrams: 01/22/19 05:15 01/16/19 10:03 Additional Labs: labs and MARs reviewed by [facility] Hospitalist ROS - Review of Systems Cardiovascular: denies: chest pain, palpitations, orthopnea, paroxysmal noc. dyspnea, edema, light headedness Gastrointestinal: denies: nausea, vomiting, abdominal pain, diarrhea, constipation, melena, hematochezia - Medication Medications: Active Medications Generic Name Dose Route Start Last Admin Trade Name Freq PRN Reason Stop Dose Admin Acetaminophen 1,000 mg 01/21/19 12:00 01/22/19 12:03 Tylenol PO 01/23/19 06:01 1,000 mg Q6HR YANNI Administration Acidophilus 1 tab 01/22/19 09:00 01/22/19 09:19 Floranex PO 1 tab DAILY YANNI Administration Aspirin 81 mg 01/21/19 21:00 01/22/19 09:18 Ecotrin PO 81 mg BID YANNI Administration Atorvastatin Calcium 10 mg 01/21/19 21:00 01/21/19 21:40 Lipitor PO 10 mg HS YANNI Administration Calcium Carbonate 600 mg 01/22/19 09:00 01/22/19 09:19 Caltrate PO 600 mg DAILY YANNI Administration Coenzyme Q10 100 mg 01/22/19 09:00 01/22/19 09:19 Coenzyme Q10 PO 100 mg DAILY YANNI Administration Dicyclomine HCl 10 mg 01/21/19 21:00 01/22/19 09:22 Bentyl PO 10 mg BID YANNI Administration Ferrous Gluconate 324 mg 01/22/19 09:00 01/22/19 09:19 Fergon PO 324 mg BID YANNI Administration Fish Oil 1,000 mg 01/22/19 09:00 01/22/19 09:19 Fish Oil PO 1,000 mg DAILY YANNI Administration Sodium Chloride 1,000 mls @ 100 mls/hr 01/21/19 10:00 01/22/19 05:55 Normal Saline 0.9% IV 1,000 mls .Q10H YANNI Administration Ropivacaine 250 ml/ Device 250 mls @ 10 mls/hr 01/21/19 10:45 01/22/19 13:16 NERVE BLCK 01/24/19 10:44 250 mls INF YANNI Administration Iron/Minerals/Multivitamins 1 tab 01/22/19 09:00 01/22/19 09:19 Theragran M PO 1 tab DAILY YANNI Administration Ketorolac Tromethamine 15 mg 01/21/19 12:00 01/22/19 12:03 Toradol IVP 01/23/19 06:01 15 mg Q6HR YANNI Administration Magnesium Oxide 250 mg 01/22/19 09:00 01/22/19 09:19 Magnesium Oxide PO 250 mg DAILY YANNI Administration Pantoprazole Sodium 40 mg 01/22/19 09:00 01/22/19 09:19 Protonix PO 40 mg DAILY YANNI Administration Paroxetine HCl 20 mg 01/22/19 09:00 01/22/19 09:19 Paxil PO 20 mg DAILY YANNI Administration Polyethylene Glycol 17 gm 01/22/19 09:00 01/22/19 09:19 Miralax PO 17 gm DAILY YANNI Administration Prednisone 4 mg 01/22/19 09:00 01/22/19 09:21 Prednisone PO 4 mg DAILY YANNI Administration Senna/Docusate Sodium 2 tab 01/22/19 09:00 01/22/19 09:19 Senokot S PO 2 tab BID YANNI Administration Timolol Maleate 1 drop 01/22/19 09:00 01/22/19 09:19 Timoptic 0.5% Ophth Soln L EYE 1 drop DAILY YANNI Administration Tramadol HCl 50 mg 01/21/19 10:45 01/22/19 03:04 Ultram PO 50 mg Q6H PRN Administration Mild Pain (1-3) Tramadol HCl 100 mg 01/21/19 10:45 01/22/19 13:17 Ultram PO 100 mg Q6H PRN Administration Moderate Pain 4-6 - Exam General Appearance: NAD, awake alert Eye: anicteric sclera ENT: no oropharyngeal lesions, moist mucosa Neck: supple, symmetric Heart: RRR, no rubs Respiratory: CTAB Gastrointestinal: soft, non-tender Extremities: no clubbing Psychiatric: normal affect, normal behavior Hosp A/P (1) CAD (coronary artery disease) Code(s): I25.10 - ATHSCL HEART DISEASE OF [place] CORONARY ARTERY W/O ANG PCTRS Status: Chronic (2) Dyslipidemia Code(s): E78.5 - HYPERLIPIDEMIA, UNSPECIFIED Status: Chronic (3) GERD (gastroesophageal reflux disease) Code(s): K21.9 - GASTRO-ESOPHAGEAL REFLUX DISEASE WITHOUT ESOPHAGITIS Status: Chronic - Plan PT/OT, out of bed/ambulate CAD stable. Continue protonix. Continue statin.
[2019-01-22] MEDS: Atorvastatin Calcium 10 MG TAB PO SCH (21:15)
[2019-01-23] MEDS: Acetaminophen 500 MG TAB PO SCH ×2 (00:12→05:14)
[2019-01-23] MEDS: Ketorolac Tromethamine 30 MG/ML VIAL IVP SCH ×3 (00:12→05:25)
[2019-01-23] MEDS: Sodium Chloride 0.9% 1,000 ML IV SCH (02:30)
[2019-01-23 06:15] LABS: Hemoglobin 10.9 g/dL (14.0-18.0); Mean Corpuscular HGB CONC 32.3 g/dL (32.0-36.0); Mean Corpuscular Hemoglobin 32.7 pg (27.0-31.0); Mean Platelet Volume 8.4 fL (7.4-10.4); Platelet Count 253 thou/uL (130-400); RBC Distribution Width 13.1 % (11.5-14.5); Red Blood Cell (RBC) Count 3.34 mill/uL (4.70-6.10); White Blood Cell (WBC) Count 10.2 thou/uL (4.8-10.8)
[2019-01-23] MEDS: traMADol HCl 50 MG TAB PO PRN (07:05)
[2019-01-23] MEDS: Timolol 0.5% Ophth Soln 5 ml Bottle L EYE SCH (08:46)
[2019-01-23] MEDS: Calcium Carbonate 600 MG TAB PO SCH (08:47)
[2019-01-23] MEDS: Senokot S 8.6-50 MG TAB PO SCH (08:47)
[2019-01-23] MEDS: Ubidecarenone 50 MG CAP PO SCH (08:47)
[2019-01-23] MEDS: Multivitamin W/ Minerals 1 TAB PO SCH (08:47)
[2019-01-23] MEDS: Lactinex Tablet PO SCH (08:47)
[2019-01-23] MEDS: PARoxetine 20 MG TAB PO SCH (08:47)
[2019-01-23] MEDS: Ferrous Gluconate 324 MG TAB PO SCH (08:47)
[2019-01-23] MEDS: Aspirin 81 mg Enteric Coated Tablet PO SCH (08:47)
[2019-01-23] MEDS: Fish Oil 1,000 MG CAP PO SCH (08:47)
[2019-01-23] MEDS: Dicyclomine 10 MG CAP PO SCH (08:48)
[2019-01-23] MEDS: Polyethylene Glycol 3350 17 GM Packet PO SCH (08:48)
[2019-01-23] MEDS: Magnesium Oxide 250 MG TAB PO SCH (08:48)
[2019-01-23] MEDS: predniSONE 1 MG TAB PO SCH (10:32)
[2019-01-23 11:26] VITALS: BP 146/81; TEMP 97.9
[2019-01-23] MEDS ORDERED: Acetaminophen 325 MG TAB PO PRN (12:01)
== END 2019-01-23 13:10 | disposition home or self-care (01) ==
LOC: SDC 06:54 → SJJU 09:58 → SDC 01-23 13:10
PROVIDERS: ATTEND Orthopaedic Surgery
PROC: 0SRD0J9 Replacement of Left Knee Joint with Synthetic Substitute, Cemented, Open Approach (ICD-10-PCS; principal; 2019-01-21)
DX: M17.12 Unilateral primary osteoarthritis, left knee (principal); I25.10 Atherosclerotic heart disease of native coronary artery without angina pectoris; E78.5 Hyperlipidemia, unspecified; K21.9 Gastro-esophageal reflux disease without esophagitis; Z79.52 Long term (current) use of systemic steroids; Z79.899 Other long term (current) drug therapy; Z88.0 Allergy status to penicillin; Z88.5 Allergy status to narcotic agent; Z88.8 Allergy status to other drugs, medicaments and biological substances; Z91.048 Other nonmedicinal substance allergy status; Z95.5 Presence of coronary angioplasty implant and graft; Z96.651 Presence of right artificial knee joint
CPT/HCPCS: 27447; 80048; 81001; 85025; 85027; 85610; 85730; 97110; 97116 ×2; 97139 ×2; 97150 ×2; 97530; 98961; C1713; C1776; 36415; J0690; J1720; J1885; J2250; J2405; J2704; J2795; J3010; J3370; J3490; J7512; S0020

== ENCOUNTER 2024-09-24 09:40 | Outpatient (CLI) | payer MEDICARE, BC ==
[2024-09-24 10:31] LABS: Estimated GFR - POC 55.0
== END 2024-09-24 09:41 | disposition home or self-care (01) ==
LOC: SCSMRI 09:40
PROVIDERS: ATTEND Otolaryngology Plastic Surgery within the Head & Neck
DX: R51.9 Headache, unspecified (principal); I67.82 Cerebral ischemia; R93.0 Abnormal findings on diagnostic imaging of skull and head, not elsewhere classified
CPT/HCPCS: 36415; 70553; 82565